=== PATIENT | female | born 1955 | race Caucasian/White ===

== ENCOUNTER → 2020-10-27 | Outpatient (CLI) | payer SELFPAY ==
[~2020-10-27] VITALS: Ht 165.1 cm; Wt 121.2 kg
[~2020-10-27] MED LIST: ACETAMINOPHEN 500 MG TAB (TYLENOL) PO PRN; CASIRIVIMAB/IMDEVIMAB 1,200 MG in NS (IVPB) 250 ML IV ONE; EPINEPHrine INJECTION 1 MG/ML AMP IM PRN; ONDANSETRON 4 MG/2 ML (SDV) Z0FRAN IV PRN; diphenhydrAMINE 50 MG/ML INJ (BENADRYL) IV PRN
[2020-10-27 09:08] VITALS: BP 135/80
[2020-10-27 10:44] VITALS: BP 122/73
== END ==
LOC: INFUSION 09:12
PROVIDERS: ATTEND Nurse Practitioner Family
DX: Z23 Encounter for immunization (principal); U07.1 COVID-19